=== PATIENT | male | born 1965 | race Caucasian/White ===

== ENCOUNTER 2020-12-17 15:07 | Outpatient (REF) | payer OTHER, SELFPAY | END 2020-12-17 15:08 | disposition home or self-care (01) | LOC: HO.BBR 15:07 | PROVIDERS: PCP Internal Medicine; Visit Provider Internal Medicine Hematology & Oncology | DX: D45 Polycythemia vera (principal) | CPT/HCPCS: 85014; 85018; 99195 ==

== ENCOUNTER 2020-12-30 15:40 | Outpatient (REF) | payer OTHER, SELFPAY | END 2020-12-30 15:41 | disposition home or self-care (01) | LOC: HO.BBR 15:40 | PROVIDERS: Visit Provider Internal Medicine Hematology & Oncology | DX: D45 Polycythemia vera (principal) | CPT/HCPCS: 85014; 85018; 99195 ==

== ENCOUNTER 2021-01-06 15:22 | Outpatient (REF) | payer OTHER, SELFPAY | END 2021-01-06 15:23 | disposition home or self-care (01) | LOC: HO.BBR 15:22 | PROVIDERS: Visit Provider Internal Medicine Hematology & Oncology | DX: D45 Polycythemia vera (principal) | CPT/HCPCS: 85018; 99195 ==

== ENCOUNTER 2021-01-15 15:05 | Outpatient (REF) | payer OTHER, SELFPAY | END 2021-01-15 15:06 | disposition home or self-care (01) | LOC: HO.BBR 15:05 | PROVIDERS: PCP Internal Medicine; Visit Provider Internal Medicine Hematology & Oncology | DX: D45 Polycythemia vera (principal) | CPT/HCPCS: 85018; 99195 ==

== ENCOUNTER 2021-01-24 15:05 | Outpatient (REF) | payer OTHER, SELFPAY | END 2021-01-24 15:06 | disposition home or self-care (01) | LOC: HO.BBR 15:05 | PROVIDERS: PCP Internal Medicine; Visit Provider Internal Medicine Hematology & Oncology | DX: D45 Polycythemia vera (principal) | CPT/HCPCS: 85018; 99195 ==

== ENCOUNTER 2021-01-31 15:10 | Outpatient (REF) | payer OTHER, SELFPAY | END 2021-01-31 15:11 | disposition home or self-care (01) | LOC: HO.BBR 15:10 | PROVIDERS: PCP Internal Medicine; Visit Provider Internal Medicine Hematology & Oncology | DX: D45 Polycythemia vera (principal) | CPT/HCPCS: 85014; 85018; 99195 ==

== ENCOUNTER 2021-02-07 15:12 | Outpatient (REF) | payer OTHER, SELFPAY | END 2021-02-07 15:13 | disposition home or self-care (01) | LOC: HO.BBR 15:12 | PROVIDERS: Visit Provider Internal Medicine Hematology & Oncology | DX: D45 Polycythemia vera (principal) | CPT/HCPCS: 85014; 85018; 99195 ==

== ENCOUNTER 2021-02-14 15:08 | Outpatient (REF) | payer OTHER, SELFPAY | END 2021-02-14 15:09 | disposition home or self-care (01) | LOC: HO.BBR 15:08 | PROVIDERS: Visit Provider Internal Medicine Hematology & Oncology | DX: D45 Polycythemia vera (principal) | CPT/HCPCS: 85018; 99195 ==

== ENCOUNTER 2021-02-21 08:33 | Outpatient (REF) | payer OTHER, SELFPAY | END 2021-02-21 08:34 | disposition home or self-care (01) | LOC: HO.BBR 08:33 | PROVIDERS: Visit Provider Internal Medicine Hematology & Oncology | DX: D45 Polycythemia vera (principal) | CPT/HCPCS: 85018; 99195 ==

== ENCOUNTER 2021-02-26 11:59 | Outpatient (REF) | payer OTHER, SELFPAY | END 2021-02-26 12:00 | disposition home or self-care (01) | LOC: HO.BBR 11:59 | PROVIDERS: Visit Provider Internal Medicine Hematology & Oncology | DX: D45 Polycythemia vera (principal) | CPT/HCPCS: 85018; 99195 ==

== ENCOUNTER 2021-03-05 14:30 | Outpatient (REF) | payer OTHER, SELFPAY | END 2021-03-05 14:31 | disposition home or self-care (01) | LOC: HO.BBR 14:30 | PROVIDERS: Visit Provider Internal Medicine Hematology & Oncology | DX: D45 Polycythemia vera (principal) | CPT/HCPCS: 85014; 85018; 99195 ==

== ENCOUNTER 2021-03-13 15:07 | Outpatient (REF) | payer OTHER, SELFPAY | END 2021-03-13 15:08 | disposition home or self-care (01) | LOC: HO.BBR 15:07 | PROVIDERS: Visit Provider Internal Medicine Hematology & Oncology | DX: D45 Polycythemia vera (principal) | CPT/HCPCS: 85014; 85018; 99195 ==

== ENCOUNTER 2021-03-27 14:14 | Outpatient (REF) | payer OTHER, SELFPAY | END 2021-03-27 14:15 | disposition home or self-care (01) | LOC: HO.BBR 14:14 | PROVIDERS: Visit Provider Internal Medicine Hematology & Oncology | DX: D45 Polycythemia vera (principal) | CPT/HCPCS: 85018 ==

== ENCOUNTER 2021-04-09 14:15 | Outpatient (REF) | payer OTHER, SELFPAY | END 2021-04-09 14:16 | disposition home or self-care (01) | LOC: HO.BBR 14:15 | PROVIDERS: Visit Provider Internal Medicine Hematology & Oncology | DX: D45 Polycythemia vera (principal) | CPT/HCPCS: 85014; 85018; 99195 ==

== ENCOUNTER 2021-04-23 14:20 | Outpatient (REF) | payer OTHER, SELFPAY | END 2021-04-23 14:21 | disposition home or self-care (01) | LOC: HO.BBR 14:20 | PROVIDERS: Visit Provider Internal Medicine Hematology & Oncology | DX: D45 Polycythemia vera (principal) | CPT/HCPCS: 85014; 85018; 99195 ==

== ENCOUNTER 2021-07-01 15:10 | Outpatient (REF) | payer OTHER, SELFPAY | END 2021-07-01 15:11 | disposition home or self-care (01) | LOC: HO.BBR 15:10 | PROVIDERS: Visit Provider Internal Medicine Hematology & Oncology | DX: D45 Polycythemia vera (principal) | CPT/HCPCS: 85014; 85018; 99195 ==

== ENCOUNTER 2023-02-22 08:58 | Outpatient (REF) | payer OTHER, SELFPAY | END 2023-02-22 08:59 | disposition home or self-care (01) | LOC: HO.BBR 08:58 | PROVIDERS: PCP Internal Medicine; Visit Provider Physician Assistant Medical | DX: D75.1 Secondary polycythemia (principal) | CPT/HCPCS: 85018; 99195 ==

== ENCOUNTER 2023-02-24 11:54 | Outpatient (REF) | payer OTHER, SELFPAY | END 2023-02-24 11:55 | disposition home or self-care (01) | LOC: HO.BBR 11:54 | PROVIDERS: Visit Provider Physician Assistant Medical | DX: D75.1 Secondary polycythemia (principal) | CPT/HCPCS: 85014; 85018; 99195 ==

== ENCOUNTER 2023-03-10 13:39 | Outpatient (REF) | payer OTHER, SELFPAY | END 2023-03-10 13:40 | disposition home or self-care (01) | LOC: HO.BBR 13:39 | PROVIDERS: PCP Internal Medicine; Visit Provider Physician Assistant Medical | DX: D75.1 Secondary polycythemia (principal) | CPT/HCPCS: 85014; 85018; 99195 ==

== ENCOUNTER 2023-03-24 13:46 | Outpatient (REF) | payer OTHER, SELFPAY | END 2023-03-24 13:47 | disposition home or self-care (01) | LOC: HO.BBR 13:46 | PROVIDERS: PCP Internal Medicine; Visit Provider Physician Assistant Medical | DX: D75.1 Secondary polycythemia (principal) | CPT/HCPCS: 85018; 99195 ==

== ENCOUNTER 2023-04-07 13:48 | Outpatient (REF) | payer OTHER, SELFPAY | END 2023-04-07 13:49 | disposition home or self-care (01) | LOC: HO.BBR 13:48 | PROVIDERS: PCP Internal Medicine; Visit Provider Physician Assistant Medical | DX: D75.1 Secondary polycythemia (principal) | CPT/HCPCS: 85014; 85018; 99195 ==

== ENCOUNTER 2023-04-22 13:49 | Outpatient (REF) | payer OTHER, SELFPAY | END 2023-04-22 13:50 | disposition home or self-care (01) | LOC: HO.BBR 13:49 | PROVIDERS: Visit Provider Physician Assistant Medical | DX: D75.1 Secondary polycythemia (principal) | CPT/HCPCS: 85014; 85018; 99195 ==

== ENCOUNTER 2023-05-05 14:09 | Outpatient (REF) | payer OTHER, SELFPAY | END 2023-05-05 14:10 | disposition home or self-care (01) | LOC: HO.BBR 14:09 | PROVIDERS: PCP Internal Medicine; Visit Provider Physician Assistant Medical | DX: D75.1 Secondary polycythemia (principal) | CPT/HCPCS: 85018; 99195 ==

== ENCOUNTER 2023-06-02 13:46 | Outpatient (REF) | payer OTHER, SELFPAY | END 2023-06-02 13:47 | disposition home or self-care (01) | LOC: HO.BBR 13:46 | PROVIDERS: PCP Internal Medicine; Visit Provider Physician Assistant Medical | DX: D75.1 Secondary polycythemia (principal) | CPT/HCPCS: 85018; 99195 ==

== ENCOUNTER 2023-06-16 13:45 | Outpatient (REF) | payer OTHER, SELFPAY | END 2023-06-16 13:46 | disposition home or self-care (01) | LOC: HO.BBR 13:45 | PROVIDERS: PCP Internal Medicine; Visit Provider Physician Assistant Medical | DX: D75.1 Secondary polycythemia (principal) | CPT/HCPCS: 85018; 99195 ==

== ENCOUNTER 2023-08-25 13:52 | Outpatient (REF) | payer OTHER, SELFPAY | END 2023-08-25 13:53 | disposition home or self-care (01) | LOC: HO.BBR 13:52 | PROVIDERS: PCP Internal Medicine; Visit Provider Physician Assistant Medical | DX: D75.1 Secondary polycythemia (principal) | CPT/HCPCS: 85018; 99195 ==

== ENCOUNTER 2023-09-08 13:57 | Outpatient (REF) | payer OTHER, SELFPAY | END 2023-09-08 13:58 | disposition home or self-care (01) | LOC: HO.BBR 13:57 | PROVIDERS: PCP Internal Medicine; Visit Provider Physician Assistant Medical | DX: D75.1 Secondary polycythemia (principal) | CPT/HCPCS: 85018; 99195 ==

== ENCOUNTER 2023-10-06 08:47 | Outpatient (REF) | payer OTHER, SELFPAY | END 2023-10-06 08:48 | disposition home or self-care (01) | LOC: HO.BBR 08:47 | PROVIDERS: PCP Internal Medicine; Visit Provider Physician Assistant Medical | DX: D75.1 Secondary polycythemia (principal) | CPT/HCPCS: 85014; 85018; 99195 ==